=== PATIENT | female | born 1990 | race Caucasian/White ===

== ENCOUNTER 2017-09-09 06:00 | Inpatient (IN) ==
[2017-09-09] MEDS ORDERED: Metoclopramide 10 MG/2 ML VIAL IVP PRN (06:22)
[2017-09-09] MEDS ORDERED: Famotidine 20 MG/2 ML VIAL IVP PRN (06:22)
[2017-09-09] MEDS ORDERED: Lidocaine -MPF 1% 2 ML VIAL ID ONE (06:25)
[2017-09-09] MEDS ORDERED: Ringers Solution, Lactated 1,000 ML IVC SCH (06:30)
[2017-09-09] MEDS ORDERED: miSOPROStol 25 MCG TABLET PO SCH (08:00)
[2017-09-09 08:03] LABS: Basophils % 0.3 %; Eosinophils # 0.1 K/mcL (0.0-0.6); Eosinophils % 1.2 %; Hematocrit 34.2 % (35.3-44.9); Hemoglobin 11.6 g/dL (11.5-15.4); Immature Granulocytes % 0.4 % (0-4); Lymphocytes # 2.3 K/mcL (0.6-4.6); Lymphocytes % 19.8 %; Mean Corpuscular HGB Conc 33.9 g/dL (31.6-35.5); Mean Corpuscular Hemoglobin 30.2 pg (28.0-33.3); Mean Corpuscular Volume 89.1 fL (83.0-100.0); Mean Platelet Volume 11.3 fL (9.4-12.4); Monocytes # 0.7 K/mcL (0.0-1.3); Monocytes % 5.6 %; Neutrophils # 8.5 K/mcL (1.6-8.9); Platelet Count 187 K/mcL (140-400); Red Blood Count 3.84 M/mcL (3.82-4.97); Red Cell Distribution Width 12.9 % (11.5-14.5); Segmented Neutrophils % 72.7 %
[2017-09-09 08:38] LABS: Amphetamine Screen,Urine Negative ng/mL (Cutoff=1000); Barbiturate Screen,Urine Negative ng/mL (Cutoff=200); Benzodiazepines Screen,Urine Negative ng/mL (Cutoff=200); Cannabinoid Screen,Urine Negative ng/mL (Cutoff = 50); Cocaine Screen,Urine Negative ng/mL (Cutoff= 300); Opiate Screen,Urine Negative ng/mL (Cutoff=300); Phencyclidine Screen,Urine Negative ng/mL (Cutoff=25)
[2017-09-09] MEDS ORDERED: Lidocaine -MPF 1% 2 ML VIAL INFILT ONE (12:21)
--- NOTE | 2017-09-09 12:47 | OB Labor Progress Note ---
Date of Encounter: 09/09/17 Time of Encounter: 10:30 Labor Progress Note - Subjective Subjective: Doing well, uc's getting stronger - Cervix Cervix: /-1 - Heart Tones Heart Tones: RNST - Interventions Interventions: AROM clear - Plan Plan: Expect
--- NOTE | 2017-09-09 12:55 | OB/GYN Procedure Note ---
Delivery - Delivery Date: 09/09/17 Provider: Salvatore Gilman Intrapartum events: none Delivery induction: misoprostol Delivery monitor: external FHT, external uterine Anesthesia: local Estimated Blood Loss: 200 - Infant (s) Infant A Infant Delivery Date: 09/09/17 Infant Delivery Time: 12:18 Presentation: vertex Position: NILDA Route of delivery: Gender: Male Viability: Viable Pounds: 9 Ounces: 1 at 1 minute: 8 at 5 mins: 9 Specimens collected: cord blood Placenta: spontaneous Cord: 3 umbilical vessels - Repair Episiotomy: none Laceration Description: Perineal - 1st Degree - Complications Delivery complications: none Delivery comments: Pt s/p of liveborn male infant without incident. Pt had spontaneous delivery of normal placenta with 3 vc. 1st degree laceration repaired with 1% lidocaine with epi.
--- NOTE | 2017-09-09 13:02 | OB/GYN History & Physical ---
Date of Encounter: 09/09/17 Time of Encounter: 13:00 Assessment and Plan (1) Term Current visit: Yes Status: Acute Pt presents for induction of labor. Plan cytotec and expect . GBBS neg. History of Present Illness Chief complaint: Here for induction HPI: Ms. Cedeno is a 27 year old female female at 39 weeks gestation presents for induction of labor secondary to h/o rapid labor. has been uncomplicated. Past Med Surg Social Fam HX - Past Medical History Source: patient, old records reviewed Medical history: no medical history Psychiatric history: no psych history - Past Surgical History Surgical History: no surgical history - Social History Smoking Status: Never smoker Alcohol use: none Drug use: none - Family History Mother Living Status: Still Living Hx Family Cardiac Disorders: No Hx Family Respiratory Disorders: No Hx Family Cancer: No Hx Family GI Disorders: No Hx Family Genitourinary Disorders: No Hx Family Endocrine Disorder: No Hx Family Musculoskeletal Disorders: No Hx Family Neuromuscular Disorders: No Hx Family Neurologic Disorders: No Hx Family HEENT Disorders: No Hx Family Autoimmune Disorders: No Hx Family Reproductive Disorders: No Hx Family Psychosocial Disorders: No Hx Family Medical Disorders: No Obstetrical History - Pregnancies : 4 Ab's: 2 Medications and Allergies Formula Tablet 1 tab PO DAILY 09/09/17 [History] Zantac PO DAILY 09/09/17 [History] 3 Allergy/AdvReac Type Severity Reaction Status Date / Time No Known Allergies Allergy Verified 09/09/17 06:20 Exam - Vital Signs Vital signs: Initial Vital Signs Temp Pulse Resp BP 97.8 F 86 16 126/61 09/09/17 06:28 09/09/17 06:28 09/09/17 06:28 09/09/17 06:28 - Constitutional Constitutional: well developed, no acute distress - HEENT HEENT: EOMI, PERRL - Neck Neck exam: full ROM - Lungs Respiratory exam: CTAB - Cardiovascular Cardiovascular exam: RRR - Abdomen Abdomen: Present: gravid - Extremities Extremities exam: full ROM Deep Tendon Reflex Grade: 2+ Normal - Cervix Dilation: 3 Effacement: 80 Station: -2 Results Result Diagrams: 09/09/17 07:45 Abnormal lab results WBC 11.7 K/mcL (4.3-11.1) H 09/09/17 07:45 Hct 34.2 % (35.3-44.9) L 09/09/17 07:45 All other labs normal. - VTE Reasons for not Prescribing Prophylaxis: Treatment not Indicated - Low risk for VTE
[2017-09-09] MEDS ORDERED: Acetaminophen 325 MG TABLET PO PRN (14:31)
[2017-09-09] MEDS ORDERED: Rho Immune Globulin 1,500 UNIT SYRINGE IM PRN (14:31)
[2017-09-09] MEDS ORDERED: Oxytocin 20 units/ LR 1000 mL 20 UNIT/1,000 ML BAG IVC SCH (14:31)
[2017-09-09] MEDS ORDERED: Measles/Mumps/Rubella Vacc 0.5 ML VIAL SQ PRN (14:31)
[2017-09-09] MEDS: Ibuprofen 600 MG TABLET PO PRN ×2 (15:11→23:01)
[2017-09-10 04:23] LABS: Basophils % 0.1 %; Eosinophils # 0.1 K/mcL (0.0-0.6); Eosinophils % 0.3 %; Hematocrit 36.1 % (35.3-44.9); Hemoglobin 12.2 g/dL (11.5-15.4); Immature Granulocytes % 0.6 % (0-4); Lymphocytes # 3.3 K/mcL (0.6-4.6); Lymphocytes % 16.3 %; Mean Corpuscular HGB Conc 33.8 g/dL (31.6-35.5); Mean Corpuscular Hemoglobin 30.8 pg (28.0-33.3); Mean Corpuscular Volume 91.2 fL (83.0-100.0); Monocytes # 1.1 K/mcL (0.0-1.3); Monocytes % 5.2 %; Neutrophils # 15.9 K/mcL (1.6-8.9); Platelet Count 221 K/mcL (140-400); Red Blood Count 3.96 M/mcL (3.82-4.97); Red Cell Distribution Width 12.7 % (11.5-14.5); Segmented Neutrophils % 77.5 %
[2017-09-10] MEDS: Ibuprofen 600 MG TABLET PO PRN (06:08)
--- NOTE | 2017-09-10 08:43 | Discharge Summary ---
Date of Encounter: 09/10/17 Time of Encounter: 08:41 - Discharge Diagnosis (1) Normal vaginal delivery Priority: Primary Status: Acute (2) Breast feeding status of mother Priority: Secondary Status: Acute - Discharge Medications Prescriptions: Ibuprofen [Motrin] 600 mg PO Q6HR PRN #30 tablet PRN Reason: Pain Breast Pump [BREAST PUMP] 1 each .ROUTE AD #1 each Docusate [Colace] 100 mg PO BID PRN #20 capsule PRN Reason: Constipation Home Medications: Formula Tablet 1 tab PO DAILY 09/09/17 [History] Zantac PO DAILY 09/09/17 [History] Acetaminophen [Tylenol] 650 mg PO Q6HR PRN tablet 09/10/17 [Rx] Breast Pump [BREAST PUMP] 1 each .ROUTE AD #1 each 09/10/17 [Rx] Docusate [Colace] 100 mg PO BID PRN #20 capsule 09/10/17 [Rx] Ibuprofen [Motrin] 600 mg PO Q6HR PRN #30 tablet 09/10/17 [Rx] Allergies/Adverse Reactions: 3 Allergy/AdvReac Type Severity Reaction Status Date / Time No Known Allergies Allergy Verified 09/09/17 06:20 Data Procedures and tests throughout hospitalization: Laboratory Tests 09/09/17 09/09/17 09/10/17 07:45 07:45 04:08 WBC 11.7 H 20.5 H D RBC 3.84 3.96 Hgb 11.6 12.2 Hct 34.2 L 36.1 MCV 89.1 91.2 MCH 30.2 30.8 MCHC 33.9 33.8 RDW 12.9 12.7 Plt Count 187 221 MPV 11.3 11.0 Immature Gran % 0.4 0.6 Seg Neutrophils % 72.7 77.5 Lymphocytes % 19.8 16.3 Monocytes % 5.6 5.2 Eosinophils % 1.2 0.3 Basophils % 0.3 0.1 Neutrophils # 8.5 15.9 H Lymphocytes # 2.3 3.3 Monocytes # 0.7 1.1 Eosinophils # 0.1 0.1 Basophils # 0.0 0.0 Urine Opiates Screen Negative Ur Barbiturates Screen Negative Ur Phencyclidine Scrn Negative Ur Amphetamines Screen Negative U Benzodiazepines Scrn Negative Urine Cocaine Screen Negative U Marijuana (THC) Screen Negative Labs on day of discharge: Labs from last 24 hours 09/10/17 04:08 WBC 20.5 H D RBC 3.96 Hgb 12.2 Hct 36.1 MCV 91.2 MCH 30.8 MCHC 33.8 RDW 12.7 Plt Count 221 MPV 11.0 Immature Gran % 0.6 Seg Neutrophils % 77.5 Lymphocytes % 16.3 Monocytes % 5.2 Eosinophils % 0.3 Basophils % 0.1 Neutrophils # 15.9 H Lymphocytes # 3.3 Monocytes # 1.1 Eosinophils # 0.1 Basophils # 0.0 Date of admission: 09/09/17 06:12 Primary care physician: PCP NONE Consults: 09/09/17 14:31 Consult to Tiler [CONS] Routine Comment: Vaginal delivery, consult needed Discharging clinician: Joselyn Lara Anticipated date of discharge: 09/10/17 - Patient Status Disposition: Home, Self-Care Condition: Good Functional capacity at discharge: independent ambulation Overall status at discharge: patient is progressing back to baseline - Discharge Instructions Follow Up With: NONE,PCP [Primary Care Provider] - Salvatore Gilman MD [Partnered Physician] - - Diet and Activity Activity: resume usual activities as tolerated Diet: advance to your usual diet Hospital Course Reason for admission: induction of labor, IUP at term Delivery: Episiotomy: none Laceration: 1st degree Other procedures: none complications: none Discharge diagnosis: IUP at term delivered [place] baby: male Time Attestation: Total time spent providing and/or coordinating discharge services: Time Spent: Less than 30 minutes Exam - Constitutional Vitals: Temp Pulse Resp BP Pulse Ox 97.5 F L 73 16 115/78 97 09/10/17 04:20 09/10/17 04:20 09/10/17 04:40 09/10/17 04:20 09/10/17 04:20 General appearance IM: A&O X 3, pleasant, no acute distress, answers questions appropriately - Respiratory Respiratory exam: Present: CTAB - Cardiovascular Cardiovascular exam IM: Present: RRR - GI/Abdominal GI/Abdominal exam IM: normal bowel sounds - Rectal Rectal exam: deferred - Uterine Tone: Firm Uterus Position: 1 Finger Below Umbilicus Additional comments: No diffuse tenderness - Extremities Exam Extremities exam IM: Present: full ROM, normal inspection, radial pulses palpable and symmetrical - Neurological Exam Neurological exam: alert, oriented X3
[2017-09-10] MEDS ORDERED: Prenatal Vit/FA 1 EACH TABLET PO SCH (09:00)
[2017-09-10 10:22] VITALS: BP 104/64
== END 2017-09-10 13:33 | disposition home or self-care (01) | DRG 775 ==
LOC: 1NENULAB 06:12 → 1NENUOBS 14:31
PROVIDERS: ADMIT Obstetrics & Gynecology; ATTEND Obstetrics & Gynecology